=== PATIENT | female | born 1955 | race American Indian/Alaskan Native ===

== ENCOUNTER 2018-07-25 09:49 | Outpatient (CLI) | payer BC ==
[2018-07-25 11:34] LABS: Alanine Aminotransferase 15 units/L (7-56); Albumin 4.6 g/dL (3.9-5); BUN/Creatinine Ratio 19; Blood Urea Nitrogen 15 mg/dL (7-17); Calcium 9.5 mg/dL (8.4-10.2); Hemolysis Index 6
[2018-07-25 11:47] LABS: Free T4 (Free Thyroxine) 1.21 ng/dL (0.76-1.46)
[2018-07-30 22:07] LABS: Albumin 4.6 g/dL (3.8-4.8); Gamma Globulin 1.1 g/dL (0.8-1.7)
== END 2018-07-25 09:50 | disposition home or self-care (01) ==
LOC: LAB 09:49
PROVIDERS: ATTEND Specialist
DX: E53.1 Pyridoxine deficiency (principal); E53.8 Deficiency of other specified B group vitamins; G63 Polyneuropathy in diseases classified elsewhere; G60.8 Other hereditary and idiopathic neuropathies; R42 Dizziness and giddiness; I10 Essential (primary) hypertension
CPT/HCPCS: 36415; 80053; 82607; 82747; 84165; 84207; 84439; 84443; 86592